=== PATIENT | male | born 2000 | race Caucasian/White ===

== ENCOUNTER 2022-07-11 17:02 | Emergency (ER) | payer OTHER ==
[2022-07-11 17:10] VITALS: RESP 18; TEMP 98.8
[2022-07-11] MEDS ORDERED: HYDROmorphone 1 MG/ML 1 ML SYRINGE IVP STA ×2 (17:17→19:38)
--- NOTE | 2022-07-11 17:21 | ED ---
General Adult HPI - General Chief complaint: Trauma Stated complaint: right arm injury Time Seen by Provider: 07/11/22 17:12 Source: patient, RN notes reviewed Mode of arrival: EMS Limitations: no limitations - History of Present Illness Initial comments: Patient is a pleasant 21-year-old male presenting to the emergency Department with right arm injury. Incident occurred just prior to arrival at work. Patient was working and his arm got caught in a machine between the process and a tape. Patient states the tape broke and moved out of the way and that may have helped some. Patient complains of discomfort of his right shoulder and upper and mid arm. Patient states discomfort is greatly increased with movement. No other area of injury or concern. Patient denies alcohol or street drug. - Related Data Home Medications Medication Instructions Recorded Confirmed No Known Home Medications 03/14/15 03/14/15 Allergies Allergy/AdvReac Type Severity Reaction Status Date / Time No Known Allergies Allergy Verified 07/11/22 17:09 Review of Systems ROS Statement: Those systems with pertinent positive or pertinent negative responses have been documented in the HPI. ROS Other: All systems not noted in ROS Statement are negative. Constitutional: Denies: fever Eyes: Denies: eye pain ENT: Denies: ear pain Respiratory: Denies: cough Cardiovascular: Denies: chest pain Endocrine: Denies: fatigue Gastrointestinal: Denies: abdominal pain Genitourinary: Denies: dysuria Musculoskeletal: Reports: as per HPI. Denies: back pain Skin: Denies: rash Neurological: Denies: headache, weakness Past Medical History Past Medical History: No Reported History Additional Past Medical History / Comment(s): TBI History of Any Multi-Drug Resistant Organisms: None Reported Past Surgical History: No Surgical Hx Reported Past Psychological History: No Psychological Hx Reported Smoking Status: Current every day smoker Past Alcohol Use History: Occasional Past Drug Use History: Marijuana General Exam Limitations: no limitations General appearance: alert, in no apparent distress Head exam: Present: atraumatic, normocephalic Eye exam: Present: normal appearance, PERRL, EOMI ENT exam: Present: normal exam Neck exam: Present: normal inspection. Absent: tenderness Respiratory exam: Present: normal lung sounds bilaterally. Absent: chest wall tenderness Cardiovascular Exam: Present: regular rate, normal rhythm Expanded Peripheral pulses: 2+: Radial (R) GI/Abdominal exam: Present: soft. Absent: tenderness Extremities exam: Present: tenderness (Swelling and tenderness right upper arm. Tenderness right upper forearm. Distally the extremity is neurovascular intact except for extension of the right thumb is limited.) Right Shoulder Exam: Present: normal inspection Upper Arm exam: Present: tenderness, swelling Elbow exam: Present: normal inspection Forearm Wrist exam: Present: tenderness Neuro motor exam: Present: thumb IP flexion intact, fingers 2-5 abduction intact. Absent: thumb adduction intact Vascular: Present: normal capillary refill Back exam: Present: normal inspection. Absent: tenderness, vertebral tenderness Neurological exam: Present: alert, motor sensory deficit (Difficulty with extension of right thumb) Psychiatric exam: Present: normal affect, normal mood Skin exam: Present: normal color Course Vital Signs 07/11/22 17:04 Temperature 98.8 F Pulse Rate 72 Respiratory 18 Rate Blood Pressure 147/94 O2 Sat by Pulse 100 Oximetry - Reevaluation(s) Reevaluation #1: 07/11/22 18:06 Case was discussed with orthopedics Dr. Scott who is concerned regarding weakness of the right thumb and a floating elbow and does recommend [facility] 07/11/22 18:25 Case also discussed with Dr. Kirk at [facility] who will accept transfer Procedures - Orthopedic Splinting/Casting Injury #1 Side: right Upper Extremity Injury Location: long arm Upper Extremity Immobilizer: posterior splint Medical Decision Making - Medical Decision Making Was pt. sent in by a medical professional or institution (, PA, APPLICATION PACKAGER, urgent care, hospital, or jail...) When possible be specific @ -No Did you speak to anyone other than the patient for history (EMS, parent, family, police, friend...)? What history was obtained from this source @ -EMS house right history including trauma Did you review nursing and triage notes (agree or disagree)? Why? @ -I reviewed and agree with nursing and triage notes Were old charts reviewed (outside hosp., previous admission, EMS record, old EKG, old radiological studies, urgent care reports/EKG's, jail records)? Report findings @ -No old charts were reviewed Differential Diagnosis (chest pain, altered mental status, abdominal pain women, abdominal pain men, vaginal bleeding, weakness, fever, dyspnea, syncope, headache, dizziness, GI bleed, back pain, seizure, CVA, palpatations, mental health)? @ -not applicable EKG interpreted by me (3pts min.). @ -As above X-rays interpreted by me (1pt min.). @ -X-ray right shoulder and right hand show no acute process. X-ray right humerus shows midshaft humerus fracture with some angulation. X-ray right forearm does show midshaft radius and ulnar fracture. There is no displacement of the radius. CT interpreted by me (1pt min.). @ -None done U/S interpreted by me (1pt. min.). @ -None done What testing was considered but not performed or refused? (CT, X-rays, U/S, labs)? Why? @ -None What meds were considered but not given or refused? Why? @ -None Did you discuss the management of the patient with other professionals (professionals i.e. , PA, APPLICATION PACKAGER, lab, RT, psych nurse, social services aide, recreation programmer, teacher, hazard mitigation officer, supervisor case loading)? Give summary @ -Case was discussed with orthopedic doctor as well as Dr. Kirk from [facility] will accept transfer. Was smoking cessation discussed for >3mins.? @ -No Was critical care preformed (if so, how long)? @ -No Were there social determinants of health that impacted care today? How? (Homelessness, low income, unemployed, alcoholism, drug addiction, transportation, low edu. Level, literacy, decrease access to med. care, fpc, rehab)? @ -No Was there de-escalation of care discussed even if they declined (Discuss DNR or withdrawal of care, Hospice)? DNR status @ -No What co-morbidities impacted this encounter? (DM, HTN, Smoking, COPD, CAD, Cancer, CVA, ARF, Chemo, Hep., AIDS, mental health diagnosis, sleep apnea, morbid obesity)? @ -None Was patient admitted / discharged? Hospital course, mention meds given and route, prescriptions, significant lab abnormalities, going to OR and other perti nent info. @ -Patient will be transferred for orthopedic trauma care. There is concern for floating elbow and weakness with extension of the right thumb Undiagnosed new problem with uncertain prognosis? @ -No Drug Therapy requiring intensive monitoring for toxicity (Heparin, Nitro, Insulin, Cardizem)? @ -No Were any procedures done? @ -Right long-arm splint, see above Diagnosis/symptom? @ -Right humerus fracture, right radius and ulnar fracture Acute, or Chronic, or Acute on Chronic? @ -Acute, acute Uncomplicated (without systemic symptoms) or Complicated (systemic symptoms)? @ -Complicated with weakness with extension of the right thumb Side effects of treatment? @ -No Exacerbation, Progression, or Severe Exacerbation? @ -No Poses a threat to life or bodily function? How? (Chest pain, USA, ID, pneumonia, PE, COPD, DKA, ARF, appy, cholecystitis, CVA, Diverticulitis, Homicidal, Suicidal, threat to staff... and all critical care pts) @ -No Disposition Clinical Impression: Right humeral fracture, Closed fracture of right radius and ulna Disposition: OTHER INSTITUTION NOT DEFINED Condition: Serious Is patient prescribed a controlled substance at d/c from ED?: No Referrals: None,Stated [Primary Care Provider] - 1-2 days Time of Disposition: 18:38 - Out of Hospital Transfer - Req. Specs Out of Hospital Transfer - Requested Specifics: Other Emergency Center
--- NOTE | 2022-07-11 17:59 | XR ---
EXAMINATION TYPE: XR shoulder complete RT, XR hand complete RT, XR humerus RT, XR forearm RT DATE OF EXAM: 07/11/2022 5:44 PM INDICATION: Patient age:Male; 21 years old; Reason for study: trauma; COMPARISON: None TECHNIQUE: The right shoulder was examined in AP, internally rotated and scapular Y projections. The right forearm was evaluated in frontal and lateral views. The right humerus was evaluated in frontal lateral views. The right hand was evaluated in frontal lateral oblique and navicular views FINDINGS: * Right mid shaft spiral fracture of the humerus mid diaphysis with anterior angulation. * Acute fracture of the right radius diaphysis with 7 mm displacement and volar angulation. * Acute mildly comminuted fracture of the mid ulna. * No fractures of the hand or wrist. There is soft tissue swelling of the upper extremity. No radiopaqu e foreign bodies. IMPRESSION: 1. Right mid shaft oblique fracture of the humerus diaphysis with anterior angulation. Findings comp atible with Edgard-Gualberto fracture. 2. Acute fracture of the right midshaft diaphysis of the radius and ulna.
[2022-07-11 19:40] VITALS: BP 130/81; PULSE 90
== END 2022-07-11 20:10 | disposition other institution (70) ==
LOC: EC 17:02
DX: S52.201A Unspecified fracture of shaft of right ulna, initial encounter for closed fracture (principal); S52.91XA Unspecified fracture of right forearm, initial encounter for closed fracture; F12.90 Cannabis use, unspecified, uncomplicated; F17.200 Nicotine dependence, unspecified, uncomplicated; X50.0XXA Overexertion from strenuous movement or load, initial encounter
CPT/HCPCS: 99284; 73030; 73060; 73090; 73130; 96374; 96376; J1170